=== PATIENT | male | born 1940 | race Caucasian/White ===

== ENCOUNTER 2020-12-16 10:27 | Outpatient (CLI) | payer BC ==
[2020-12-16 11:46] LABS: Hemoglobin 13.8 g/dL (13.5-17.5); Mean Corpuscular HGB CONC 32.8 g/dL (32.0-36.0); Mean Corpuscular Hemoglobin 29.4 pg (27.0-33.0); Mean Corpuscular Volume 89.6 fl (81.2-95.1); Mean Platelet Volume 10.8 fl (7.4-10.4); Platelet Count 192 10x3/uL (150-450); RBC Distribution Width 12.4 % (11.5-14.5); White Blood Cell (WBC) Count 6.1 10x3/uL (3.5-10.5)
[2020-12-16 12:10] LABS: Anion Gap 12 mmol/L (10-20); BUN (Urea Nitrogen) 17 mg/dL (8.4-25.7); Calc. Creatinine Clearance 0 mL/min (70-130); Calcium 9.9 mg/dL (7.8-10.44); Carbon Dioxide 29 mmol/L (23-31); Chloride 106 mmol/L (98-107); Glucose 86 mg/dL (83-110); Potassium 4.9 mmol/L (3.5-5.1); Sodium 142 mmol/L (136-145)
[2020-12-16 12:11] LABS: Bilirubin Neg (Negative); Blood, Urine Negative (Negative); Clarity Clear (Clear); Glucose, Urine (Dipstick) Normal (Negative); Ketone, Urine Negative (Negative); Leukocyte Negative (Negative); Nitrite Negative (Negative); Protein, Urine (Dipstick) Negative (Neg-Trace); Urobilinogen Normal mg/dL (Less than 2)
[2020-12-16 12:15] LABS: INR-International Normal Ratio 1.1; PTT 27.2 sec (22.0-33.0); Prothrombin Time 11.7 sec (9.5-12.1)
[2020-12-16 12:39] LABS: Bacteria/HPF None Seen HPF (None Seen); RBC/HPF 0-3 HPF (0-3); Squamous Epithelial None Seen HPF (0-3); WBC/HPF None Seen HPF (0-3)
[2020-12-16 22:36] LABS: SARS-CoV-2 PCR by NAA Not Detected (NotDetected)
== END 2020-12-16 10:28 | disposition home or self-care (01) ==
LOC: LABBT 10:27
PROVIDERS: ATTEND Urology
DX: Z01.818 Encounter for other preprocedural examination (principal); Z20.822 Contact with and (suspected) exposure to COVID-19; N32.0 Bladder-neck obstruction
CPT/HCPCS: 80048; 81001; 85027; 85610; 85730; 87086; 87635; 93005; 93010; U0003; U0005

== ENCOUNTER 2020-12-21 07:08 | Inpatient (IN) | payer MEDICARE, BC ==
[2020-12-21] MEDS ORDERED: Vancomycin 1 GM/200 ML BAG ONE (08:06)
[2020-12-21] MEDS ORDERED: Levofloxacin 500 mg/D5W 100 ml Premix Bag ONE (08:06)
[2020-12-21] MEDS ORDERED: Fentanyl 100 MCG/2 ML VIAL ONE (08:46)
[2020-12-21] MEDS ORDERED: Midazolam HCl 2 mg/2 ml Vial ONE (08:46)
[2020-12-21] MEDS ORDERED: PROPOFOL 200 MG/20 ML VIAL ONE (08:54)
[2020-12-21] MEDS ORDERED: Ondansetron PF 4 MG/2 ML Vial ONE ×2 (08:54→11:34)
[2020-12-21] MEDS ORDERED: Dexamethasone 20 MG/5 ML VIAL ONE (08:54)
[2020-12-21] MEDS ORDERED: ePHEDrine Sulfate 50 MG/10 ML VIAL ONE (08:54)
[2020-12-21] MEDS ORDERED: B & O ONE (10:58)
[2020-12-21] MEDS ORDERED: Ondansetron HCl/PF 4 MG/2 ML Vial IVP PRN (11:21)
[2020-12-21] MEDS ORDERED: Acetaminophen 500 MG TAB PO PRN (11:23)
[2020-12-21] MEDS ORDERED: traMADol HCl 50 MG TAB PO PRN (11:28)
[2020-12-21] MEDS ORDERED: B & O PR PRN (11:29)
[2020-12-21] MEDS ORDERED: Metoclopramide HCl 10 MG/2 ML VIAL ONE (12:12)
[2020-12-21] MEDS ORDERED: D5 1/2 NS w/20 mEq KCL 1,000 ML ONE (14:45)
[2020-12-21 18:26] VITALS: BMI 22.4
[2020-12-21] MEDS: Atorvastatin Calcium 10 MG TAB PO SCH (20:28)
[2020-12-21] MEDS: Docusate 100 MG CAP PO SCH (20:29)
[2020-12-21] MEDS ORDERED: Non-Formulary Item 1 EACH (Glucosam/Chondr-Msm1/D3/C/Mang [Glucosamine Chondroitin Comple PO SCH (21:00)
[2020-12-22] MEDS: D5 1/2 NS w/20 mEq KCL 1,000 ML IV SCH ×2 (00:16→19:53)
[2020-12-22 05:47] LABS: #Lymphocytes 0.6 thou/uL (1.20-3.40); #Monocytes 0.8 thou/uL (0.11-0.59); #Neutrophils 11.8 thou/uL (1.40-6.50); %Basophils 0.3 % (0.0-1.0); %Eosinophils 0.2 % (0.0-10.0); %Lymphocytes 4.7 % (21.0-51.0); %Monocytes 6.3 % (0.0-10.0); %Neutrophils 88.5 % (42.0-75.0); Hemoglobin 11.5 g/dL (14.0-18.0); Mean Corpuscular HGB CONC 33.9 g/dL (32.0-36.0); Mean Corpuscular Hemoglobin 30.5 pg (27.0-31.0); Mean Corpuscular Volume 89.7 fL (78.0-98.0); Mean Platelet Volume 8.6 fL (7.4-10.4); Platelet Count 171 thou/uL (130-400); RBC Distribution Width 11.5 % (11.5-14.5); Red Blood Cell (RBC) Count 3.77 mill/uL (4.70-6.10); White Blood Cell (WBC) Count 13.4 thou/uL (4.8-10.8)
[2020-12-22 06:10] LABS: Anion Gap 11 mmol/L (10-20); BUN (Urea Nitrogen) 12 mg/dL (8.4-25.7); Calc. Creatinine Clearance 73 mL/min (70-130); Calcium 8.9 mg/dL (7.8-10.44); Carbon Dioxide 23 mmol/L (23-31); Chloride 110 mmol/L (98-107); Glucose 125 mg/dL (83-110); Potassium 4.7 mmol/L (3.5-5.1); Sodium 139 mmol/L (136-145)
[2020-12-22] MEDS: Docusate 100 MG CAP PO SCH ×2 (07:36→20:02)
[2020-12-22] MEDS ORDERED: Lisinopril 5 MG TAB PO SCH (09:00)
[2020-12-22] MEDS: Atorvastatin Calcium 10 MG TAB PO SCH (20:02)
[2020-12-23] MEDS: D5 1/2 NS w/20 mEq KCL 1,000 ML IV SCH (04:08)
[2020-12-23] MEDS: Docusate 100 MG CAP PO SCH (08:03)
[2020-12-23] MEDS ORDERED: Lisinopril 10 MG TAB PO SCH (09:00)
[2020-12-23 11:42] VITALS: BP 172/76; TEMP 97.7
[2020-12-23] MEDS ORDERED: Lidocaine 2% 6 ML SYR TOP SCH (12:45)
== END 2020-12-23 15:30 | disposition home or self-care (01) | DRG 667 ==
LOC: SDC 07:08 → SURG A 11:23 → SDC 11:23 → SURG A 11:31
PROVIDERS: ADMIT Urology; ATTEND Urology
PROC: 0VT08ZZ Resection of Prostate, Via Natural or Artificial Opening Endoscopic (ICD-10-PCS; principal; 2020-12-21)
DX: N32.0 Bladder-neck obstruction (principal); R33.9 Retention of urine, unspecified; I10 Essential (primary) hypertension; E78.00 Pure hypercholesterolemia, unspecified
CPT/HCPCS: 36415; 80048; 85025; 87077; 87086; 87186; 88305; J1100; J1956; J2250; J2405; J2704; J2765; J3010; J3370; J3480

== ENCOUNTER 2023-03-28 14:32 | Outpatient (CLI) | payer BC ==
[~2023-03-28 14:32] MED LIST: Iopamidol 370 76% 100 ML VIAL ONE
== END 2023-03-28 14:33 | disposition home or self-care (01) ==
LOC: BICCT 14:32
PROVIDERS: ATTEND Internal Medicine
DX: R19.00 Intra-abdominal and pelvic swelling, mass and lump, unspecified site (principal); N28.1 Cyst of kidney, acquired; K57.30 Diverticulosis of large intestine without perforation or abscess without bleeding; K44.9 Diaphragmatic hernia without obstruction or gangrene
CPT/HCPCS: 74160; 82565; Q9967